=== PATIENT | female | born 1970 | race American Indian/Alaskan Native ===

== ENCOUNTER 2018-01-26 06:21 | Emergency (ER) | payer BC ==
[2018-01-26 06:36] VITALS: BMI 26.7
[2018-01-26 06:37] VITALS: BP 127/83; PULSE 82; RESP 20; TEMP 97.8; O2SAT 100
[2018-01-26 06:44] LABS: SQUAMOUS EPITHIAL 1 /hpf (0-5); URINE BILIRUBIN NEGATIVE (NEGATIVE); URINE BLOOD NEGATIVE (NEGATIVE); URINE CLARITY Clear (Clear); URINE COLOR Straw (YELLOW); URINE GLUCOSE (UA) NORMAL (Normal); URINE LEUKOCYTE ESTERASE NEG Leu/uL (Negative); URINE PROTEIN NEGATIVE (NEGATIVE); URINE UROBILINOGEN NORMAL mg/dL (0.2-1.0)
[2018-01-26 06:55] LABS: HCG,QUALITATIVE URINE NEGATIVE (NEGATIVE)
--- NOTE | 2018-01-26 07:32 | C.PDOC ---
History Of Present Illness 47 year old female, with PMHx of HTN, appendectomy, endometriosis, and small bowel resection, presents to ED for evaluation of abdominal pain associated with multiple episodes of diarrhea since last night. Pt states she was unable to sleep night due to the diarrhea. Notes she has not had any diarrhea in the past few hours, pain has resolved, and feels much better currently. Denies fever , vomiting, dysuria, urinary frequency, hematuria, or vaginal discharge. Time Seen by Provider: 01/26/18 07:12 Chief Complaint (Nursing): Abdominal Pain History Per: Patient History/Exam Limitations: no limitations Onset/Duration Of Symptoms: Days (1) Current Symptoms Are (Timing): Better Location Of Pain/Discomfort: Diffuse Radiation Of Pain To:: None Quality Of Discomfort: "Pain" Associated Symptoms: Diarrhea. denies: Loss Of Appetite, Back Pain, Urinary Symptoms Exacerbating Factors: None Alleviating Factors: None Recent travel outside of the [place]: No Additional History Per: Patient Abnormal Vaginal Bleeding: No Past Medical History Reviewed: Historical Data, Nursing Documentation, Vital Signs Vital Signs: Last Vital Signs Temp 97.8 F 01/26/18 06:31 Pulse 82 01/26/18 06:31 Resp 20 01/26/18 06:31 BP 127/83 01/26/18 06:31 Pulse Ox 100 01/26/18 14:40 - Medical History PMH: HTN Surgical History: Appendectomy Family History: States: Unknown Family Hx - Social History Hx Tobacco Use: No Hx Alcohol Use: No Hx Substance Use: No - Immunization History Hx Tetanus Toxoid Vaccination: No Hx Influenza Vaccination: Yes Hx Pneumococcal Vaccination: No Review Of Systems Except As Marked, All Systems Reviewed And Found Negative. Constitutional: Negative for: Fever, Chills Gastrointestinal: Positive for: Abdominal Pain, Diarrhea. Negative for: Nausea , Vomiting, Melena, Hematochezia Genitourinary: Negative for: Dysuria, Frequency, Hematuria, Vaginal Discharge Musculoskeletal: Negative for: Back Pain Physical Exam - Physical Exam Appears: Non-toxic, No Acute Distress Skin: Normal Color, Warm, Dry Head: Atraumatic, Normacephalic Eye(s): bilateral: Normal Inspection, EOMI Nose: Normal Oral Mucosa: Moist Neck: Normal ROM, Supple Chest: Symmetrical Cardiovascular: Rhythm Regular Respiratory: Normal Breath Sounds, No Rales, No Rhonchi, No Wheezing Gastrointestinal/Abdominal: Soft, No Tenderness Back: No CVA Tenderness, No Vertebral Tenderness Extremity: Normal ROM Neurological/Psych: Oriented x3, Normal Speech ED Course And Treatment O2 Sat by Pulse Oximetry: 100 (RA) Pulse Ox Interpretation: Normal Progress Note: UA ordered and reviewed. Pt was offered further work up, but declining. Pt states she feels much better now, and is comfortable going home. Pt is being discharged home with instructions to follow up with PMD in 1-3 days. Return to ER if symptoms persist or worsen. Disposition - Disposition Disposition: HOME/ ROUTINE Disposition Time: 07:32 Condition: STABLE Additional Instructions: Return to ER if symptoms return . Follow up with PMD in 1-2 days. Prescriptions: Loperamide HCl/Simethicone [Imodium Multi-Symptom Rel Cplt] 1 each PO DAILY #15 tablet Instructions: Acute Abdomen (Belly Pain), Adult (DC) Forms: [employer] (Polish) - Clinical Impression Clinical Impression: Abdominal pain, Diarrhea - PA / ADVICE CLERK / Resident Statement MD/DO has reviewed & agrees with the documentation as recorded. - Scribe Statement The provider has reviewed the documentation as recorded by the Scribe Patricia Davalos All medical record entries made by the Janeyibbernard were at my direction and personally dictated by me. I have reviewed the chart and agree that the record accurately reflects my personal performance of the history, physical exam, medical decision making, and the department course for this patient. I have also personally directed, reviewed, and agree with the discharge instructions and disposition.
== END 2018-01-26 07:41 | disposition home or self-care (01) ==
LOC: C.ER 06:21
DX: R19.7 Diarrhea, unspecified (principal); R10.9 Unspecified abdominal pain

== ENCOUNTER 2019-01-19 11:38 | Emergency (ER) | payer BC ==
[2019-01-19 11:38] VITALS: BMI 26.7
[2019-01-19 12:12] LABS: HCG,QUALITATIVE URINE NEGATIVE (NEGATIVE)
[2019-01-19 12:18] LABS: SQUAMOUS EPITHIAL 1 /hpf (0-5); URINE BILIRUBIN NEGATIVE (NEGATIVE); URINE BLOOD 3+ (NEGATIVE); URINE CLARITY Clear (Clear); URINE COLOR Straw (YELLOW); URINE GLUCOSE (UA) NORMAL (Normal); URINE LEUKOCYTE ESTERASE NEG Leu/uL (Negative); URINE PROTEIN NEGATIVE (NEGATIVE); URINE UROBILINOGEN NORMAL mg/dL (0.2-1.0)
[2019-01-19 13:28] LABS: BASO % 0.4 % (0.0-2.0); EOS # 0.2 K/uL (0.0-0.7); EOS % 2.1 % (0.0-4.0); HEMOGLOBIN 12.7 g/dL (11.0-16.0); LYMPH # 1.7 K/uL (1.0-4.3); LYMPH % 23.5 % (20.0-40.0); MEAN CELL VOLUME 88.1 fL (81.0-99.0); MEAN CORPUSCULAR HEMOGLOBIN 29.8 pg (27.0-31.0); MEAN CORPUSCULAR HGB CONC 33.8 g/dL (33.0-37.0); MEAN PLATELET VOLUME 8.1 fL (7.2-11.7); MONO # 0.4 K/uL (0.0-0.8); MONO % 5.6 % (0.0-10.0); NEUT % 68.4 % (50.0-75.0); RBC 4.26 Mil/uL (3.80-5.20); RED CELL DISTRIBUTION WIDTH 13.5 % (11.5-14.5); WHITE BLOOD COUNT 7.3 K/uL (4.8-10.8)
[2019-01-19 13:43] LABS: ALB/GLOB RATIO 1.1 (1.0-2.1); ALBUMIN 4.1 g/dL (3.5-5.0); ALT/SGPT 18 U/L (9-52); AST/SGOT 27 U/L (14-36); BLOOD UREA NITROGEN 10 mg/dL (7-17); CALCIUM 9.4 mg/dl (8.6-10.4); GFR NON-AFRICAN AMERICAN > 60
--- NOTE | 2019-01-19 15:26 | C.PDOC ---
History Of Present Illness 48 year old female presents to ED with complaint of vaginal bleeding for the past 2 and a half days. Patient states that she has been menopausal for the past year and a half. Patient has a PMHx of endometriosis. Patient states that she thinks she has cancer. She states that she went to the urgent care yesterday and was referred to the HALVER MACHINE OPERATOR. She took an STD test yesterday and was told she need an endometrial biopsy to be done. Patient comes requesting a biopsy. She denies vaginal discharge, pelvic pain, fever, and urinary symptoms. Time Seen by Provider: 01/19/19 12:05 Chief Complaint (Nursing): Female Genitourinary History Per: Patient History/Exam Limitations: no limitations Onset/Duration Of Symptoms: Days (2.5) Current Symptoms Are (Timing): Still Present Associated Symptoms: denies: Fever, Chills, Urinary Symptoms, Other (pelvic pain) Abnormal Vaginal Bleeding: Yes Past Medical History Reviewed: Historical Data, Nursing Documentation, Vital Signs Vital Signs: Last Vital Signs Temp 98.4 F 01/19/19 11:40 Pulse 79 01/19/19 11:40 Resp 20 01/19/19 11:40 BP 120/79 01/19/19 11:40 Pulse Ox 98 01/19/19 11:40 Primary Care Provider: Nereyda Wallace Medical History PMH: HTN Other PMH: Endometriosis Surgical History: Appendectomy Family History: States: Unknown Family Hx - Social History Hx Tobacco Use: No Hx Alcohol Use: No Hx Substance Use: No - Immunization History Hx Tetanus Toxoid Vaccination: No Hx Influenza Vaccination: Yes Hx Pneumococcal Vaccination: No Review Of Systems Constitutional: Negative for: Fever, Chills, Weakness Gastrointestinal: Negative for: Nausea, Vomiting, Abdominal Pain Genitourinary: Positive for: Vaginal Bleeding. Negative for: Dysuria, Hematuria, Vaginal Discharge, Pelvic Pain Physical Exam - Physical Exam Appears: Non-toxic, No Acute Distress Skin: Normal Color, Warm, Dry Head: Atraumatic, Normacephalic Neck: Normal ROM, Supple Gastrointestinal/Abdominal: Soft, No Tenderness Pelvic: Normal Bimanual Exam, Vaginal Bleeding (blood in the vagina, no active bleeding, cervical oz is closed), No Vaginal Discharge, No Cervical Motion Tenderness, No Adnexal Tenderness, No Tender Uterus Extremity: Capillary Refill (<2 seconds) Neurological/Psych: Oriented x3, Normal Speech, Normal Cognition ED Course And Treatment - Laboratory Results Result Diagrams: 01/19/19 13:12 01/19/19 13:12 Lab Results: Total Bilirubin 0.4 mg/dL (0.2-1.3) 01/19/19 13:12 AST 27 U/L (14-36) 01/19/19 13:12 ALT 18 U/L (9-52) 01/19/19 13:12 Alkaline Phosphatase 138 U/L (38-126) H 01/19/19 13:12 Total Protein 7.6 g/dL (6.3-8.3) 01/19/19 13:12 Albumin 4.1 g/dL (3.5-5.0) 01/19/19 13:12 Globulin 3.6 gm/dL (2.2-3.9) 01/19/19 13:12 Albumin/Globulin Ratio 1.1 (1.0-2.1) 01/19/19 13:12 Urine Color Straw (YELLOW) 01/19/19 12:04 Urine Clarity Clear (Clear) 01/19/19 12:04 Urine pH 7.0 (5.0-8.0) 01/19/19 12:04 Ur Specific [place] 1.003 (1.003-1.030) 01/19/19 12:04 Urine Protein Negative mg/dL (NEGATIVE) 01/19/19 12:04 Urine Glucose (UA) Normal mg/dL (Normal) 01/19/19 12:04 Urine Ketones Negative mg/dL (NEGATIVE) 01/19/19 12:04 Urine Blood 3+ (NEGATIVE) H 01/19/19 12:04 Urine Nitrate Negative (NEGATIVE) 01/19/19 12:04 Urine Bilirubin Negative (NEGATIVE) 01/19/19 12:04 Urine Urobilinogen Normal mg/dL (0.2-1.0) 01/19/19 12:04 Ur Leukocyte Esterase Neg [place]ora/uL (Negative) 01/19/19 12:04 Urine WBC (Auto) < 1 /hpf (0-5) 01/19/19 12:04 Urine RBC (Auto) 14 /hpf (0-3) H 01/19/19 12:04 Ur Squamous Epith Cells 1 /hpf (0-5) 01/19/19 12:04 Urine HCG, Qual Negative (NEGATIVE) 01/19/19 12:04 Urine HCG, Qual Negative (NEGATIVE) 01/19/19 12:04 O2 Sat by Pulse Oximetry: 98 (in RA) Pulse Ox Interpretation: Normal - CT Scan/US Pelvic US Other Rad Studies (CT/US): Read By Radiologist, Radiology Report Reviewed CT/US Interpretation: Accession No. : [id number]. Patient Name / ID : CALLIE MUNIZ / [id number]. Exam Date : 01/19/2019 14:43:16 ( Approved ). Study Comment : Sex / Age : F / 48Y. Creator : Adonis Brasher MD. Dictator : Adonis Brasher MD. Surface Grinding Machine Hand : Cutlet Maker Pork : Adonis Brasher MD. Approver2 : Report Date : 01/19/2019 16:00:02. My Comment : . Date of service: 01/19/2019. HISTORY: post menopausal bleeding. COMPARISON: Comparison is made to the previous study dated 05/13/2016. TECHNIQUE: Transabdominal and endovaginal ultrasound examination of the pelvis was performed. FINDINGS: UTERUS: Measures 9.1 x 6 x 5.3 cm. The uterus is heterogeneous enlarged. Soft tissue mass in the uterus at the posterior wall measures 2.9 x 2.7 x 3 centimeter. There is also a right uterine wall 2.9 x 1.9 x 2.3 centimeter soft tissue mass. There is fundal 1.2 x 1.5 x 1.4 centimeter mass and 3.2 x 1.8 x 3.8 centimeter mass likely represent fibroids. ENDOMETRIUM: Measures 4 mm in diameter. Unremarkable. CERVIX: No cervical abnormality identified. RIGHT OVARY: Measures 1.8 x 2 x 2 point cm. No solid mass. Normal flow. There is 1.1 x 0.9 x 1 centimeters cyst seen. LEFT OVARY: Measures 4.7 x 2.7 x 4.1 cm. No solid mass. Normal flow. 1.8 x 1.7 x 2.2 centimeter complex cyst seen at the left adnexa. FREE FLUID: No significant free fluid noted. OTHER FINDINGS: None. IMPRESSION: Multiple soft tissue lesions in the uterus are again noted suggestive of fibroids. Complex cyst in left ovary measures 1.8 x 2.2 centimeter likely represent hemorrhagic cyst.. Progress Note: U-preg, CMP, CBC, and Pelvic US ordered for patient. Disposition - Disposition Disposition: HOME/ ROUTINE Disposition Time: 16:15 Condition: STABLE Additional Instructions: Follow up with OBGYN within 2-3 days. Return to ED if feel worse. Instructions: Uterine Fibroids, Vaginal Ultrasound Forms: [employer] (Italian) - Clinical Impression Clinical Impression: Post-menopausal bleeding, Leiomyoma of uterus - PA / DIMENSIONAL INSPECTOR / Resident Statement MD/DO has reviewed & agrees with the documentation as recorded. (Jackeline Diaz) - Scribe Statement The provider has reviewed the documentation as recorded by the Scribe (Jackeline Diaz) All medical record entries made by the Scribe were at my direction and personally dictated by me. I have reviewed the chart and agree that the record accurately reflects my personal performance of the history, physical exam, medical decision making, and the department course for this patient. I have also personally directed, reviewed, and agree with the discharge instructions and disposition.
[2019-01-19 16:03] VITALS: BP 113/79; PULSE 73; RESP 17; TEMP 98.7
--- NOTE | 2019-01-19 16:03 | US ---
Date of service: 01/19/2019 HISTORY: post menopausal bleeding COMPARISON: Comparison is made to the previous study dated 05/13/2016 TECHNIQUE: Transabdominal and endovaginal ultrasound examination of the pelvis was performed. FINDINGS: UTERUS: Measures 9.1 x 6 x 5.3 cm. The uterus is heterogeneous enlarged. Soft tissue mass in the uterus at the posterior wall measures 2.9 x 2.7 x 3 centimeter. There is also a right uterine wall 2.9 x 1.9 x 2.3 centimeter soft tissue mass. There is fundal 1.2 x 1.5 x 1.4 centimeter mass and 3.2 x 1.8 x 3.8 centimeter mass likely represent fibroids. ENDOMETRIUM: Measures 4 mm in diameter. Unremarkable. CERVIX: No cervical abnormality identified. RIGHT OVARY: Measures 1.8 x 2 x 2 point cm. No solid mass. Normal flow. There is 1.1 x 0.9 x 1 centimeters cyst seen. LEFT OVARY: Measures 4.7 x 2.7 x 4.1 cm. No solid mass. Normal flow. 1.8 x 1.7 x 2.2 centimeter complex cyst seen at the left adnexa. FREE FLUID: No significant free fluid noted. OTHER FINDINGS: None. IMPRESSION: Multiple soft tissue lesions in the uterus are again noted suggestive of fibroids. Complex cyst in left ovary measures 1.8 x 2.2 centimeter likely represent hemorrhagic cyst..
[2019-01-19 16:18] VITALS: O2SAT 98
== END 2019-01-19 16:26 | disposition home or self-care (01) ==
LOC: C.ER 11:38
DX: D25.9 Leiomyoma of uterus, unspecified (principal); N95.0 Postmenopausal bleeding